=== PATIENT | male | born 1935 | race Caucasian/White ===

== ENCOUNTER → 2017-09-15 | Outpatient (CLI) | payer MEDICARE ==
--- NOTE | 2017-09-15 15:54 | Diagnostic Imaging Report ---
PROCEDURE:X-RAY MODIFIED BARIUM SWALLOW COMPARISON:None. INDICATIONS:Pharyngeal dysphagia. DISCUSSION:Fluoroscopic examination was performed in conjunction with speech pathology, during swallowing of a variety of thin and thick liquid consistencies. Fluoroscopy time: 1min 54sec Cumulative air kerma: 2.9 mGy CONCLUSION:No penetration or aspiration. Please see the report from speech pathology for complete details. Dictated by: Sincere Munroe M.D. on 09/15/2017 at 15:58 Electronically approved by: Sincere Munroe M.D. on 09/15/2017 at 15:58
== END ==
LOC: DX 12:18
PROVIDERS: ATTEND Internal Medicine Hematology & Oncology
DX: R13.14 Dysphagia, pharyngoesophageal phase (principal); K22.4 Dyskinesia of esophagus; C61 Malignant neoplasm of prostate; R63.4 Abnormal weight loss
CPT/HCPCS: 74230; 92611; G8996; G8997; G8998

== ENCOUNTER 2017-09-26 10:51 | Outpatient (RCR) | payer MEDICARE | END 2017-09-30 | LOC: ST 10:51 | PROVIDERS: ATTEND Internal Medicine Hematology & Oncology | DX: R13.10 Dysphagia, unspecified (principal); R63.3 Feeding difficulties; C79.82 Secondary malignant neoplasm of genital organs | CPT/HCPCS: 92526 ×3; 92610; 97139; G8996; G8997 ==

== ENCOUNTER 2017-10-02 11:09 | Outpatient (RCR) | payer MEDICARE | END 2017-10-31 | LOC: ST 11:09 | PROVIDERS: ATTEND Internal Medicine Hematology & Oncology | DX: R13.13 Dysphagia, pharyngeal phase (principal) ==